=== PATIENT | male | born 2000 | race Caucasian/White ===

== ENCOUNTER 2021-11-04 23:19 | Emergency (ER) | payer BC ==
[~2021-11-04] VITALS: Ht 180.3 cm; Wt 99.8 kg
[2021-11-04 23:51] VITALS: BP_SYST 136
--- NOTE | 2021-11-05 02:00 | NUR ---
patient to [facility], needs attended, waiting for md assessment.
--- NOTE | 2021-11-05 03:01 | NUR ---
wound irrigation done with sterile saline.
[2021-11-05] MEDS ORDERED: AMOX-426 PO (04:23)
[2021-11-05 04:38] VITALS: BP_SYST 111
--- NOTE | 2021-11-05 04:40 | NUR ---
discharged instructions given, verbalisez understanding, vital sign stable and documented, denies pain, walked to ed door with steady gait.
== END 2021-11-05 04:40 | disposition home or self-care (01) ==
LOC: SED 23:19
DX: S61.552A Open bite of left wrist, initial encounter (principal); Z79.899 Other long term (current) drug therapy; W54.0XXA Bitten by dog, initial encounter; Y93.89 Activity, other specified; Y92.89 Other specified places as the place of occurrence of the external cause; Y99.8 Other external cause status
CPT/HCPCS: 99283

== ENCOUNTER 2022-05-31 00:58 | Emergency (ER) | payer BC ==
[~2022-05-31] VITALS: Ht 180.3 cm; Wt 102.5 kg
[~2022-05-31 00:58] MED LIST: AMOX-426 PO
[2022-05-31 01:45] VITALS: BP_SYST 137
--- NOTE | 2022-05-31 01:45 | NUR ---
Patient triaged and placed in waiting room. VSS and patient appears in no acute distress at this time. Accompanied by FAMILY, awaiting available bed, and MD notified of need for MSE.
--- NOTE | 2022-05-31 02:10 | NUR ---
DR. BURK IN TRIAGE FOR MSE
[2022-05-31] MEDS ORDERED: FAMO20TA8 PO (02:12)
[2022-05-31] MEDS ORDERED: HYDR50TA61 PO (02:15)
[2022-05-31 02:30] VITALS: BP_SYST 137
--- NOTE | 2022-05-31 02:31 | NUR ---
Patient given written and verbal discharge instructions and verbalizes understanding. ER MD discussed with patient the results and treatment provided. Patient in stable condition. ID arm band removed. Rx of PEPCID, HYDROXYZINE given. Patient educated on pain management and to follow up with PMD. Pain Scale 0. Opportunity for questions provided and answered. Medication side effect fact sheet provided.
== END 2022-05-31 02:30 | disposition home or self-care (01) ==
LOC: SED 00:58
DX: K21.9 Gastro-esophageal reflux disease without esophagitis (principal); F43.20 Adjustment disorder, unspecified; R10.13 Epigastric pain; R06.02 Shortness of breath; R11.2 Nausea with vomiting, unspecified; Z79.899 Other long term (current) drug therapy
CPT/HCPCS: 99283